=== PATIENT | male | born 1950 | race Caucasian/White ===

== ENCOUNTER 2018-11-22 15:35 | Inpatient (IN) | payer BC, OTHER ==
[2018-11-22 18:21] LABS: ADD MAN DIFF? NO
[2018-11-22 18:25] LABS: BASOPHILS % 0.5 % (0.0-2.0); EOSINOPHILS # 0.1 10^3/ul (0.0-0.5); EOSINOPHILS % 1.4 % (0.0-7.0); HEMOGLOBIN 15.6 g/dl (14.0-18.0); LYMPHOCYTES # 2.4 10^3/ul (0.8-2.9); MEAN CORPUSCULAR HGB CONC 33.2 g/dl (32.0-37.0); MEAN CORPUSCULAR VOLUME 93.3 fl (82.0-101.0); MEAN PLATELET VOLUME 8.4 fl (7.4-10.4); MONOCYTE # 0.8 10^3/ul (0.3-0.9); MONOCYTES % 10.8 % (0.0-11.0); NEUTROPHIL # 4.3 10^3/ul (1.6-7.5); NEUTROPHILS % 55.7 % (39.0-77.0); PLATELET COUNT 266 10^3/UL (140-415); RED BLOOD COUNT 5.04 10^6/ul (4.70-6.10); RED CELL DISTRIBUTION WIDTH 12.3 % (11.5-14.5)
[2018-11-22 18:25] LABS: WHITE BLOOD COUNT 7.8 10^3/ul (4.8-10.8)
[2018-11-22] MEDS: SOD CHLORIDE 0.9% 500 ML IV (18:32)
[2018-11-22] MEDS: KETOROLAC 15 MG INJ IV (18:33)
[2018-11-22] MEDS: ASPIRIN 81 MG TAB PO (18:33)
[2018-11-22 18:44] LABS: ALANINE AMINOTRANSFERASE 21 IU/L (13-69); ALBUMIN 4.4 g/dl (3.3-4.9); ALBUMIN/GLOBULIN RATIO 1.15; ALKALINE PHOSPHATASE 70 IU/L (42-121); ANION GAP 9 (5-13); ASPARTATE AMINO TRANSFERASE 18 IU/L (15-46); BILIRUBIN,INDIRECT 0.2 mg/dl (0-1.1); BILIRUBIN,TOTAL 0.2 mg/dl (0.2-1.3); BLOOD UREA NITROGEN 17 mg/dl (7-20); CALCIUM 9.1 mg/dl (8.4-10.2); CARBON DIOXIDE 25 mmol/L (21-31); CHLORIDE 107 mmol/L (97-110); CREATININE 1.23 mg/dl (0.61-1.24); Estimated GFR 59 mL/min (>60); GLUCOSE 92 mg/dl (70-220); LIPASE 165 U/L (23-300); POTASSIUM 4.6 mmol/L (3.5-5.1); SODIUM 141 mmol/L (135-144); TOTAL PROTEIN 8.2 g/dl (6.1-8.1)
[2018-11-22 18:56] LABS: TROPONIN-I < 0.012 ng/ml (0.000-0.120)
[2018-11-22] MEDS ORDERED: ONDANSETRON 4 MG INJ IV (19:30)
[2018-11-22] MEDS ORDERED: ACETAMINOPHEN 325 MG TAB PO (19:30)
[2018-11-22] MEDS ORDERED: HYDROCODONE/APAP (5/325) TAB PO (19:30)
[2018-11-22] MEDS ORDERED: NITROGLYCERIN (SL) 0.4 MG TAB SL (19:30)
[2018-11-22] MEDS ORDERED: NACL 0.9% 3 ML SYG IV (19:30)
[2018-11-22] MEDS ORDERED: ALBUTEROL/IPRATROPIUM (NEB) 3 ML AMP HHN (19:30)
[2018-11-22] MEDS ORDERED: LORAZEPAM 2 MG INJ IV (19:30)
[2018-11-22] MEDS ORDERED: DOCUSATE SODIUM 100 MG CAP PO (19:30)
[2018-11-22] MEDS ORDERED: morphine 2 MG INJ IV (19:30)
[2018-11-22] MEDS ORDERED: hydrALAzine 20 MG INJ IV (19:30)
[2018-11-22] MEDS ORDERED: MAGNESIUM HYDROXIDE 30ML CUP PO (19:30)
[2018-11-22 20:01] LABS: B-TYPE NATRIURETIC PEPTIDE 32 PG/ML (0-125)
[2018-11-22 20:09] LABS: FREE T4 (FREE THYROXINE) 1.54 ng/dl (0.78-2.44)
[2018-11-22 20:18] LABS: CREATINE KINASE 46 IU/L (23-200)
[2018-11-22 20:28] LABS: CK INDEX 0.9; CK-MB 0.43 ng/ml (0.0-2.4)
[2018-11-22 20:32] LABS: TROPONIN-I < 0.012 ng/ml (0.000-0.120)
[2018-11-22] MEDS: FUROSEMIDE 20 MG INJ IV (20:33)
[2018-11-22] MEDS: HEPARIN 5,000 UNIT/1 ML VIAL SC (21:59)
[2018-11-23 01:46] LABS: CREATINE KINASE 45 IU/L (23-200)
[2018-11-23 01:58] LABS: CK-MB 0.46 ng/ml (0.0-2.4); TROPONIN-I < 0.012 ng/ml (0.000-0.120)
[2018-11-23 06:14] LABS: ADD MAN DIFF? NO
[2018-11-23 06:17] LABS: WHITE BLOOD COUNT 7.1 10^3/ul (4.8-10.8)
[2018-11-23 06:17] LABS: BASOPHILS % 0.3 % (0.0-2.0); EOSINOPHILS # 0.1 10^3/ul (0.0-0.5); HEMATOCRIT 45.5 % (42.0-52.0); HEMOGLOBIN 15.1 g/dl (14.0-18.0); LYMPHOCYTES % 28.7 % (15.0-51.0); MEAN CORPUSCULAR HEMOGLOBIN 30.7 pg (29.0-33.0); MEAN CORPUSCULAR HGB CONC 33.2 g/dl (32.0-37.0); MEAN CORPUSCULAR VOLUME 92.5 fl (82.0-101.0); MEAN PLATELET VOLUME 8.4 fl (7.4-10.4); MONOCYTE # 0.7 10^3/ul (0.3-0.9); MONOCYTES % 9.7 % (0.0-11.0); NEUTROPHIL # 4.2 10^3/ul (1.6-7.5); NEUTROPHILS % 58.7 % (39.0-77.0); PLATELET COUNT 270 10^3/UL (140-415); RED BLOOD COUNT 4.92 10^6/ul (4.70-6.10); RED CELL DISTRIBUTION WIDTH 12.4 % (11.5-14.5)
[2018-11-23 06:33] LABS: ANION GAP 10 (5-13); BLOOD UREA NITROGEN 19 mg/dl (7-20); CALCIUM 8.9 mg/dl (8.4-10.2); CARBON DIOXIDE 24 mmol/L (21-31); CHLORIDE 108 mmol/L (97-110); CREATININE 1.24 mg/dl (0.61-1.24); Estimated GFR 58 mL/min (>60); GLUCOSE 90 mg/dl (70-220); MAGNESIUM 2.1 mg/dl (1.7-2.5); PHOSPHORUS 3.5 mg/dl (2.5-4.9); POTASSIUM 4.3 mmol/L (3.5-5.1); SODIUM 142 mmol/L (135-144)
[2018-11-23 06:34] LABS: HEMOGLOBIN A1C 5.8 % (0-5.9)
[2018-11-23 06:50] LABS: CHOL/HDL RATIO 6.2 RATIO; HDL CHOLESTEROL 25 mg/dl (30-78); LDL CHOLESTEROL,CALCULATED 95 mg/dl; TRIGLYCERIDES 186 mg/dl (0-149)
[2018-11-23 06:50] LABS: CHOLESTEROL 157 mg/dl (100-200)
[2018-11-23] MEDS: FUROSEMIDE 20 MG INJ IV (09:05)
[2018-11-23] MEDS: ASPIRIN (EC) 325 MG TAB PO (09:05)
[2018-11-23] MEDS: HEPARIN 5,000 UNIT/1 ML VIAL SC (09:22)
== END 2018-11-23 16:56 | disposition home or self-care (01) | DRG 313 ==
LOC: 6WM 20:57 → E/R 15:35 → 6WM 19:23
DX: R07.9 Chest pain, unspecified (principal); I10 Essential (primary) hypertension
CPT/HCPCS: 71045; 80048; 80053; 80061; 82550; 82553; 83036; 83690; 83735; 83880; 84100; 84439; 84443; 84484; 85025; 93005; 93306; 96372; 99285-25

== ENCOUNTER 2018-12-04 18:55 | Emergency (ER) | payer BC ==
[2018-12-04 20:52] LABS: ADD MAN DIFF? NO
[2018-12-04 20:55] LABS: BASOPHILS % 0.3 % (0.0-2.0); EOSINOPHILS # 0.1 10^3/ul (0.0-0.5); EOSINOPHILS % 1.5 % (0.0-7.0); HEMATOCRIT 42.6 % (42.0-52.0); HEMOGLOBIN 14.2 g/dl (14.0-18.0); LYMPHOCYTES # 2.3 10^3/ul (0.8-2.9); LYMPHOCYTES % 34.6 % (15.0-51.0); MEAN CORPUSCULAR HEMOGLOBIN 31.1 pg (29.0-33.0); MEAN CORPUSCULAR HGB CONC 33.3 g/dl (32.0-37.0); MEAN CORPUSCULAR VOLUME 93.2 fl (82.0-101.0); MEAN PLATELET VOLUME 8.2 fl (7.4-10.4); MONOCYTE # 0.8 10^3/ul (0.3-0.9); MONOCYTES % 12.5 % (0.0-11.0); NEUTROPHIL # 3.4 10^3/ul (1.6-7.5); NEUTROPHILS % 50.5 % (39.0-77.0); PLATELET COUNT 249 10^3/UL (140-415); RED BLOOD COUNT 4.57 10^6/ul (4.70-6.10); RED CELL DISTRIBUTION WIDTH 12.5 % (11.5-14.5)
[2018-12-04 20:55] LABS: WHITE BLOOD COUNT 6.7 10^3/ul (4.8-10.8)
[2018-12-04 21:18] LABS: ANION GAP 7 (5-13); BLOOD UREA NITROGEN 27 mg/dl (7-20); CALCIUM 8.6 mg/dl (8.4-10.2); CARBON DIOXIDE 24 mmol/L (21-31); CHLORIDE 107 mmol/L (97-110); CREATININE 1.37 mg/dl (0.61-1.24); Estimated GFR 52 mL/min (>60); GLUCOSE 97 mg/dl (70-220); POTASSIUM 4.6 mmol/L (3.5-5.1); SODIUM 138 mmol/L (135-144)
[2018-12-04 21:30] LABS: TROPONIN-I < 0.012 ng/ml (0.000-0.120)
== END 2018-12-04 22:18 | disposition home or self-care (01) ==
LOC: E/R 18:55
DX: R07.9 Chest pain, unspecified (principal)
CPT/HCPCS: 36415; 80048; 84484; 85025; 93005; 99284-25